=== PATIENT | male | born 1970 | race Hispanic/Latino ===

== ENCOUNTER 2018-03-29 15:59 | Emergency (ER) | payer OTHER, MEDICARE | END 2018-03-29 17:05 | disposition home or self-care (01) | LOC: EDH 15:59 | DX: S83.8X2A Sprain of other specified parts of left knee, initial encounter (principal); E78.5 Hyperlipidemia, unspecified; Z98.890 Other specified postprocedural states; Z72.0 Tobacco use; W18.39XA Other fall on same level, initial encounter; Y93.89 Activity, other specified; Y92.098 Other place in other non-institutional residence as the place of occurrence of the external cause; Y99.8 Other external cause status | CPT/HCPCS: 73562 ==

== ENCOUNTER 2018-08-08 10:52 | Emergency (ER) | payer OTHER, MEDICARE | END 2018-08-08 13:02 | disposition home or self-care (01) | LOC: EDH 10:52 | DX: R51 Headache (principal); E86.0 Dehydration; E78.5 Hyperlipidemia, unspecified; Z72.89 Other problems related to lifestyle; Z98.890 Other specified postprocedural states; Z72.0 Tobacco use | CPT/HCPCS: 99281 ==

== ENCOUNTER 2020-11-26 09:05 | Emergency (ER) | payer OTHER, MEDICARE ==
[2020-11-26 09:29] LABS: EOSINOPHILS % (AUTO) 3.6 % (0.0-8.0); HEMATOCRIT 42.5 % (42-54); LYMPHOCYTES % (AUTO) 22.5 % (21.0-51.0); MEAN CORPUSCULAR HEMOGLOBIN 29.3 pg (27.0-33.0); MEAN CORPUSCULAR HGB CONC 32.2 g/dL (32.0-36.0); MONOCYTES % (AUTO) 7.4 % (3.0-13.0); NEUTROPHILS % (AUTO) 65.1 % (40.0-77.0); PLATELET COUNT (AUTO) 243 K/uL (130-400); RED BLOOD CELL COUNT(AUTO) 4.67 MIL/uL (4.50-6.20); RED CELL DISTRIBUTION WIDTH 14.1 % (11.0-15.5); WHITE BLOOD COUNT (AUTO) 12.1 K/uL (4.8-10.8)
[2020-11-26 09:32] LABS: APPEARANCE,URINE Clear (CLEAR); BILIRUBIN,URINE Negative (NEGATIVE); COLOR,URINE Yellow (YELLOW); GLUCOSE, URINE (UA) Negative (NEGATIVE); KETONES,URINE Negative (NEGATIVE); LEUKOCYTE ESTERASE ,URINE Negative (NEGATIVE); NITRATE,URINE Negative (NEGATIVE); OCCULT BLOOD,URINE Small (NEGATIVE); PH,URINE 6.5 (5.0-8.0); PROTEIN,URINE Negative (NEGATIVE); UROBILINOGEN,URINE 0.2 mg/dL (0.2-1.0)
[2020-11-26 09:41] LABS: CREATININE 0.8 mg/dL (0.5-1.5)
[2020-11-26 09:42] LABS: BACTERIA,URINE None Seen /HPF (None Seen); RBC,URINE 0-1 /HPF (0-1); SQUAMOUS EPITHELIAL CELL,UR 0-2 /HPF (0-2); WBC,URINE 0-1 /HPF (0-1)
[2020-11-26 09:44] LABS: ALBUMIN 3.5 g/dL (3.5-5.0); BILIRUBIN,TOTAL 0.5 mg/dL (0.2-1.0); TOTAL PROTEIN, SERUM 6.8 g/dL (6.0-8.3)
[2020-11-26] MEDS ORDERED: KETOROLAC 30MG VIAL (30MG/ML) ONE (09:47)
[2020-11-26] MEDS ORDERED: LACTATED RINGERS 1000ML 1,000 ML IV ONE (09:48)
[2020-11-26] MEDS ORDERED: IOHEXOL-350 75 ML VIAL IV ONE (10:05)
== END 2020-11-26 13:22 | disposition home or self-care (01) ==
LOC: EDH 09:05
DX: R10.84 Generalized abdominal pain (principal); E86.0 Dehydration; E78.5 Hyperlipidemia, unspecified; Z72.0 Tobacco use
CPT/HCPCS: 36415; 74177; 80053; 81001; 83690; 85025; 96361; 96374; 99285; J1885; J7120; Q9967

== ENCOUNTER 2021-03-19 22:59 | Emergency (ER) | payer OTHER, MEDICARE ==
[~2021-03-19] VITALS: Ht 172.7 cm; Wt 113.4 kg
[2021-03-19 23:23] VITALS: BP 130/71
[2021-03-19] MEDS ORDERED: BENZONATATE 100 MG CAPSULE PO SCH (23:45)
[2021-03-19 23:59] LABS: BASOPHILS % (AUTO) 0.9 % (0.0-5.0); EOSINOPHILS % (AUTO) 1.2 % (0.0-8.0); HEMATOCRIT 40.2 % (42-54); LYMPHOCYTES % (AUTO) 16.7 % (21.0-51.0); MEAN CORPUSCULAR HEMOGLOBIN 29.6 pg (27.0-33.0); MEAN CORPUSCULAR HGB CONC 32.6 g/dL (32.0-36.0); MONOCYTES % (AUTO) 10.1 % (3.0-13.0); NEUTROPHILS % (AUTO) 70.5 % (40.0-77.0); PLATELET COUNT (AUTO) 197 K/uL (130-400); RED BLOOD CELL COUNT(AUTO) 4.42 MIL/uL (4.50-6.20); WHITE BLOOD COUNT (AUTO) 11.7 K/uL (4.8-10.8)
[2021-03-20 00:04] LABS: CREATININE 0.9 mg/dL (0.5-1.5)
[2021-03-20 00:18] LABS: ALBUMIN 3.6 g/dL (3.5-5.0); BILIRUBIN,TOTAL 0.4 mg/dL (0.2-1.0)
[2021-03-20] MEDS ORDERED: ACETAMINOPHEN 500 MG TABLET PO ONE (01:00)
[2021-03-20] MEDS: ACETAMINOPHEN 500 MG TABLET ONE ×2 (01:02→01:18)
[2021-03-20] MEDS ORDERED: SOLU-MEDROL 40MG VIAL IVP ONE (01:15)
[2021-03-20] MEDS ORDERED: CEFTRIAXONE 1G VIAL IVP ONE (01:15)
[2021-03-20] MEDS ORDERED: IPRATROPIUM/ALBUTEROL SULFATE 3 ML SOLUTION IH ONE (01:15)
[2021-03-20] MEDS ORDERED: APAP-CODEINE 300/30MG TAB PO ONE (01:15)
[2021-03-20] MEDS ORDERED: AMOX875T2 PO (03:03)
[2021-03-20] MEDS ORDERED: ALBU8.5H8 IH (03:03)
[2021-03-20] MEDS ORDERED: BENZ-17 PO (03:03)
[2021-03-20] MEDS ORDERED: PRED20TA3 PO (03:03)
== END 2021-03-20 03:21 | disposition home or self-care (01) ==
LOC: EDH 22:59
DX: J18.1 Lobar pneumonia, unspecified organism (principal); Z20.822 Contact with and (suspected) exposure to COVID-19; E78.00 Pure hypercholesterolemia, unspecified; F17.200 Nicotine dependence, unspecified, uncomplicated
CPT/HCPCS: 36415 ×2; 71045; 80053; 82550; 84484; 85025; 87040 ×2; 87635; 87804 ×2; 93005; 94640; 96374; 96375; 99285; C9803; J0696; J2920

== ENCOUNTER 2022-07-29 08:07 | Emergency (ER) | payer OTHER, MEDICARE ==
[~2022-07-29] VITALS: Ht 172.7 cm; Wt 97.1 kg
[~2022-07-29 08:07] MED LIST: ALBU8.5H8 IH; AMOX875T2 PO; BENZ-17 PO; PRED20TA3 PO
[2022-07-29 08:12] VITALS: BP 120/78
[2022-07-29] MEDS ORDERED: IBUP-2070 PO (08:44)
[2022-07-29] MEDS ORDERED: SULF1TAB42 PO (08:44)
[2022-07-29] MEDS ORDERED: SULFAMETHOX-TMP DS 800/160 TAB PO SCH (09:00)
[2022-07-29] MEDS ORDERED: CEFTRIAXONE 1G VIAL IM ONE (09:00)
[2022-08-04] MEDS ORDERED: PANT40TA PO (08:18)
[2022-08-04] MEDS ORDERED: DOXY100C5 PO (08:18)
== END 2022-07-29 09:12 | disposition home or self-care (01) ==
LOC: EDH 08:07
DX: K61.2 Anorectal abscess (principal); E78.00 Pure hypercholesterolemia, unspecified; Z98.890 Other specified postprocedural states; Z79.1 Long term (current) use of non-steroidal anti-inflammatories (NSAID)
CPT/HCPCS: 46050; 99284; 82948; 96372; J0696

== ENCOUNTER 2022-10-03 21:58 | Emergency (ER) | payer OTHER, MEDICARE ==
[~2022-10-03] VITALS: Ht 172.7 cm; Wt 99.8 kg
[~2022-10-03 21:58] MED LIST changes: -ALBU8.5H8 IH; -AMOX875T2 PO; -BENZ-17 PO; +DOXY100C5 PO; +PANT40TA PO; -PRED20TA3 PO
[2022-10-03 23:54] LABS: BASOPHILS % (AUTO) 0.6 % (0.0-5.0); EOSINOPHILS % (AUTO) 0.8 % (0.0-8.0); HEMATOCRIT 44.5 % (42-54); LYMPHOCYTES % (AUTO) 16.1 % (21.0-51.0); MEAN CORPUSCULAR HGB CONC 33.5 g/dL (32.0-36.0); MEAN CORPUSCULAR VOLUME 89.5 fL (79-99); MONOCYTES % (AUTO) 12.5 % (3.0-13.0); NEUTROPHILS % (AUTO) 68.6 % (40.0-77.0); PLATELET COUNT (AUTO) 199 K/uL (130-400); RED BLOOD CELL COUNT(AUTO) 4.97 MIL/uL (4.50-6.20); RED CELL DISTRIBUTION WIDTH 14.3 % (11.0-15.5); WHITE BLOOD COUNT (AUTO) 16.9 K/uL (4.8-10.8)
[2022-10-04] MEDS ORDERED: KETOROLAC 30MG VIAL (30MG/ML) IVP ONE
[2022-10-04] MEDS ORDERED: ACETAMINOPHEN 500 MG TABLET PO ONE
[2022-10-04 00:02] LABS: CREATININE 0.8 mg/dL (0.5-1.5); POTASSIUM 4.2 mmol/L (3.5-5.1)
[2022-10-04] MEDS ORDERED: SULFAMETHOX-TMP DS 800/160 TAB PO SCH (01:00)
[2022-10-04] MEDS ORDERED: CEFTRIAXONE 1G VIAL IVP ONE (01:00)
[2022-10-04 01:02] VITALS: BP 127/85
[2022-10-04] MEDS ORDERED: SULF1TAB42 PO (01:12)
[2022-10-04] MEDS ORDERED: CEPH500B PO (01:12)
== END 2022-10-04 01:21 | disposition home or self-care (01) ==
LOC: EDH 21:58
DX: L03.115 Cellulitis of right lower limb (principal); I89.1 Lymphangitis; Z79.2 Long term (current) use of antibiotics; Z79.899 Other long term (current) drug therapy
CPT/HCPCS: 99284; 96374; 80048; 85025; 36415; 73660; 96375; J1885; J0696

== ENCOUNTER 2022-11-26 22:35 | Observation (INO) | payer OTHER, MEDICARE ==
[~2022-11-26] VITALS: Ht 172.7 cm; Wt 102.7 kg
[~2022-11-26 22:35] MED LIST changes: +ASPI-1005 PO; +ATOR40TA69 PO; -DOXY100C5 PO; -PANT40TA PO; +SULF1TAB42 PO
[2022-11-27 01:01] LABS: BASOPHILS % (AUTO) 0.7 % (0.0-5.0); EOSINOPHILS % (AUTO) 1.1 % (0.0-8.0); HEMATOCRIT 46.7 % (42-54); LYMPHOCYTES % (AUTO) 26.2 % (21.0-51.0); MEAN CORPUSCULAR HEMOGLOBIN 30.1 pg (27.0-33.0); MEAN CORPUSCULAR HGB CONC 33.6 g/dL (32.0-36.0); MEAN CORPUSCULAR VOLUME 89.6 fL (79-99); MONOCYTES % (AUTO) 9.3 % (3.0-13.0); PLATELET COUNT (AUTO) 227 K/uL (130-400); RED BLOOD CELL COUNT(AUTO) 5.21 MIL/uL (4.50-6.20); RED CELL DISTRIBUTION WIDTH 13.6 % (11.0-15.5)
[2022-11-27 01:09] LABS: CARBON DIOXIDE 29 mmol/L (21-32); CHLORIDE 105 mmol/L (101-111); GLOMERULAR FILTR. RATE CALC 83 mL/min (>60); GLUCOSE,RANDOM 84 mg/dL (70-105); POTASSIUM 4.1 mmol/L (3.5-5.1); SODIUM SERUM 140 mmol/L (136-145); UREA NITROGEN, BLOOD 12 mg/dL (7-18)
[2022-11-27 01:16] LABS: ALANINE AMINOTRANSFERASE 23 U/L (12-78); ALBUMIN 3.7 g/dL (3.5-5.0); ASPARTATE AMINOTRANSFERASE 19 U/L (10-37); CRP QUANTITATIVE < 2.00 mg/L (0.00-9.0); TOTAL PROTEIN, SERUM 6.8 g/dL (6.0-8.3)
[2022-11-27] MEDS ORDERED: VANCOMYCIN KIT 1 GM/250 ML IV.KIT IV ONE (01:30)
[2022-11-27 05:30] VITALS: BP 113/68
[2022-11-27 08:00] VITALS: BP 121/74
[2022-11-27] MEDS: HONEY 1 APPL/ML TUBE TP SCH (08:00)
[2022-11-27] MEDS ORDERED: 0.9%NACL 100ML IVPB SCH (08:30)
[2022-11-27] MEDS ORDERED: VANCOMYCIN 500MG VIAL IVPB SCH (08:30)
[2022-11-27] MEDS ORDERED: VANCOMYCIN PROTOCOL PER PHARMACY IV SCH (08:30)
[2022-11-27] MEDS: CLINDAMYCIN IVPB 600MG/50ML 50 ML IV SCH ×2 (09:50→16:15)
[2022-11-27] MEDS: VANCOMYCIN 1.25 GM/250 ML BAG 250 ML IV SCH ×2 (09:51→20:21)
[2022-11-27] MEDS: ENOXAPARIN SODIUM 30 MG/0.3 ML SQ SCH (09:51)
[2022-11-27] MEDS: FAMOTIDINE 20MG TAB PO SCH ×2 (09:51→20:21)
[2022-11-27] MEDS: NICOTINE 14 MG/ 24 HR PATCH TD SCH (09:57)
[2022-11-27] MEDS: INSULIN HUMULIN R 100 UNIT/ML 3ML SQ SCH ×3 (11:30→20:29)
[2022-11-27 12:00] VITALS: BP 119/72
[2022-11-27 16:00] VITALS: BP 130/66
[2022-11-27] MEDS ORDERED: ACETAMINOPHEN 325 MG TAB PO PRN (18:30)
[2022-11-27] MEDS ORDERED: ACETAMINOPHEN WITH CODEINE 1 TAB TAB PO PRN (18:30)
[2022-11-27 20:00] VITALS: BP 117/75
[2022-11-28] VITALS: BP 109/66
[2022-11-28] MEDS: CLINDAMYCIN IVPB 600MG/50ML 50 ML IV SCH ×2 (00:44→13:58)
[2022-11-28 04:00] VITALS: BP 115/76
[2022-11-28] MEDS: INSULIN HUMULIN R 100 UNIT/ML 3ML SQ SCH ×2 (05:41→11:30)
[2022-11-28 05:47] LABS: MEAN CORPUSCULAR HEMOGLOBIN 29.8 pg (27.0-33.0); MEAN CORPUSCULAR HGB CONC 33.3 g/dL (32.0-36.0); MEAN CORPUSCULAR VOLUME 89.3 fL (79-99); RED BLOOD CELL COUNT(AUTO) 5.04 MIL/uL (4.50-6.20); RED CELL DISTRIBUTION WIDTH 13.7 % (11.0-15.5); WHITE BLOOD COUNT (AUTO) 10.9 K/uL (4.8-10.8)
[2022-11-28 06:02] LABS: CREATININE 0.8 mg/dL (0.5-1.5); POTASSIUM 3.9 mmol/L (3.5-5.1)
[2022-11-28] MEDS: FAMOTIDINE 20MG TAB PO SCH (07:47)
[2022-11-28] MEDS: ENOXAPARIN SODIUM 30 MG/0.3 ML SQ SCH (07:47)
[2022-11-28] MEDS: VANCOMYCIN 1.25 GM/250 ML BAG 250 ML IV SCH (07:48)
[2022-11-28 08:00] VITALS: BP 126/86
[2022-11-28] MEDS: HONEY 1 APPL/ML TUBE TP SCH (09:00)
[2022-11-28 11:43] VITALS: BP 118/75
[2022-11-28] MEDS: NICOTINE 14 MG/ 24 HR PATCH TD SCH (13:58)
[2022-11-28 15:39] VITALS: BP 124/82
[2022-11-28] MEDS ORDERED: SULF1TAB42 PO (16:13)
== END 2022-11-28 18:00 | disposition home or self-care (01) ==
LOC: EDH 22:35 → EDHIP 11-27 03:10 → 3AH 11-27 05:22
PROVIDERS: ADMIT Internal Medicine Critical Care Medicine; ATTEND Internal Medicine Critical Care Medicine
DX: L03.116 Cellulitis of left lower limb (principal); I73.9 Peripheral vascular disease, unspecified; E11.621 Type 2 diabetes mellitus with foot ulcer; L97.529 Non-pressure chronic ulcer of other part of left foot with unspecified severity; E11.51 Type 2 diabetes mellitus with diabetic peripheral angiopathy without gangrene; F17.200 Nicotine dependence, unspecified, uncomplicated; E66.01 Morbid (severe) obesity due to excess calories; E78.5 Hyperlipidemia, unspecified; I10 Essential (primary) hypertension; Z68.34 Body mass index [BMI] 34.0-34.9, adult; Z86.14 Personal history of Methicillin resistant Staphylococcus aureus infection; Z79.899 Other long term (current) drug therapy
CPT/HCPCS: 96372 ×2; 96365; 96366 ×2; 96368; 99284; 80053; 85025; 87040 ×2; 87070; 87076; 87077; 87186; 82948 ×8; 83605; 86140; 36415 ×2; 73630; 93970; 84145; 83735; 80048; 85027; G0378 ×39; J1650 ×3; J3370; J3490 ×3

== ENCOUNTER 2023-09-10 08:14 | Day surgery (SDC) | payer OTHER ==
[~2023-09-10] VITALS: Ht 172.7 cm; Wt 102.1 kg
[2023-09-10] VITALS (11 sets, daily range): BP systolic 92–123; BP diastolic 53–82; PULSE 65–83; RESP 14–18
[~2023-09-10 08:14] MED LIST changes: +0.9%NACL 1000ML 1,000 ML IV ONE; -ASPI-1005 PO; -ATOR40TA69 PO; -SULF1TAB42 PO; +TRAM100T40 PO; +[UNRECOGNIZED DRUG - CODE] PO
[2023-09-10] MEDS ORDERED: PROPOFOL 10 MG/ML 20ML VIAL IV ONE ×2 (11:05→11:09)
== END 2023-09-10 12:30 | disposition home or self-care (01) ==
LOC: ENDO 08:14 → DAH 08:14 → ENDO 12:30
PROVIDERS: ATTEND Internal Medicine Gastroenterology
DX: K92.1 Melena (principal); K59.01 Slow transit constipation; K57.30 Diverticulosis of large intestine without perforation or abscess without bleeding; K64.1 Second degree hemorrhoids; K64.4 Residual hemorrhoidal skin tags; E66.01 Morbid (severe) obesity due to excess calories; F17.200 Nicotine dependence, unspecified, uncomplicated; M12.9 Arthropathy, unspecified; E78.5 Hyperlipidemia, unspecified; Z86.010 Personal history of colon polyps; Z79.899 Other long term (current) drug therapy; Z98.890 Other specified postprocedural states; Z72.89 Other problems related to lifestyle; Z68.36 Body mass index [BMI] 36.0-36.9, adult
CPT/HCPCS: 45378; J7030 ×3; J2704 ×2; A4620 ×2; A4215 ×4; A4223 ×2; A7002 ×2; A4222 ×2; A4221 ×2; A4663 ×2; A4216 ×2; A4606 ×2; J3490

== ENCOUNTER 2024-06-03 10:01 | Emergency (ER) | payer OTHER ==
[~2024-06-03] VITALS: Ht 180.3 cm; Wt 90.7 kg
[~2024-06-03 10:01] MED LIST changes: -0.9%NACL 1000ML 1,000 ML IV ONE
[2024-06-03] MEDS: ketOROlac 15MG/ML VIAL (15MG/ML) IM STA (11:41)
[2024-06-03 13:07] VITALS: BP 76/80; PULSE 78; RESP 16; TEMP 97.8; O2SAT 99
== END 2024-06-03 13:15 | disposition home or self-care (01) ==
LOC: EDH 10:01
DX: S80.01XA Contusion of right knee, initial encounter (principal); I10 Essential (primary) hypertension; Z79.899 Other long term (current) drug therapy; W17.2XXA Fall into hole, initial encounter; Y93.89 Activity, other specified; Y92.89 Other specified places as the place of occurrence of the external cause; Y99.8 Other external cause status
CPT/HCPCS: 99283; 73562; 96372; J1885

== ENCOUNTER 2024-12-09 00:36 | Emergency (ER) | payer OTHER ==
[~2024-12-09] VITALS: Ht 172.7 cm; Wt 108.9 kg
--- NOTE | 2024-12-09 01:04 | ERN ---
ED Note History of Present Illness Stated Complaint: HEADACHE Chief Complaint: Headache Time Seen by : 00:44 Dictation: This is a 54-year-old male who presented to the emergency room complaining of headaches for the past 5 days. He also reported severe sinus congestion he has been taking Tylenol and also nasal spray. Since the headaches were relentless he came in for evaluation. He stated that he has had sinus congestion for a long time and has been using the nasal decongestant 4 months. 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 He has been taking tramadol from [place] for the chronic back pain(he had surgery many years ago). For the past 6 days he has been off of all the medications and the headache is worse . He took Tylenol and some NyQuil hoping to sleep the headache away however, it has been excruciating. The pain is mostly on the vertex and the backside. There is some light sensitivity but no aura. No throbbing. No vomitings No blurred vision diplopia motor weakness or seizure activity. No slurred speech facial droop. Temperature 96.4 pulse 73 respirations 19 blood pressure 141/87 with a pulse oximetry of 97% on room air 0 He denied any fevers but he has been taking Tylenol so it is unclear. No epistaxis. No ataxia no earaches. Temperature 96.4 pulse 73 respirations 19 blood pressure 141/87 pulse oximetry 97% on room Allergies: Coded Allergies: No Known Drug Allergies (Unverified Allergy, Unknown, 03/19/21) Home Meds Active Scripts Prochlorperazine Maleate (Compazine) 5 Mg Tab, 1 TAB PO t1d for 5 Days, #15 TAB 0 Refills Prov:TONIO WEBER MD 12/09/24 Ketorolac Tromethamine (Toradol) 10 Mg Tab, 10 MG PO QID for pain for 5 Days, # 20 TAB 0 Refills Prov:TONIO WEBER MD 12/09/24 Reported Medications Psyllium Husk (with Sugar) (Metamucil Free Powder) 3 Gram/7 Gram Powder, 822 GM PO AD, APPL 09/09/23 Tramadol HCl (Tramadol HCl) 100 Mg Tablet, 100 MG PO AD PRN for PAIN, TAB 09/09/23 Past Medical History Past Medical History: No Pertinent History Surgical History: None Surgical History Other: LEFT FOOT SX back surgery for herniated discs Family History: Negative Social History: Negative, Lives with family, Other RN Note Reviewed/Agreed w/PFSH: Yes Review of System Dictation Constitutional: Negative for fever,chills, and weight loss Eyes: Negative for injury, pain,redness, and discharge ENT: Negative for injury,pain or swelling positive for sinus congestion and headaches Cardiovascular: Negative for chest pain, palpitations, and edema Respiratory: Negative for shortness of breath, cough, and wheezing, Abdomen/GI: Negative for abdominal pain, nausea, vomiting, diarrhea, and constipation Back: Negative for injury and pain : Negative for injury, bleeding and discharge MS/Extremity: Negative for injury and deformity Skin: Negative for rash, and discoloration Neuro: Negative for headache, weakness, numbness, tingling, and seizure Psych: Negative for suicide ideation, homicidal ideation, and hallucinations Initial Vital Sign VS Vital Signs Date Time Temp Pulse Resp B/P (MAP) Pulse Ox O2 Delivery O2 Flow Rate FiO2 12/09/24 00:54 96.4 73 19 141/87 97 Room Air Physical Exam Dictation General: awake, alert, NAD Head/Face: Normocephalic, atraumatic Eyes: PERRL, EOMI, vision at baseline ENT: oral cavity clear, TMs clear, no signs of infection Neck: Trachea midline, supple, no nuchal rigidity Cardiovascular: RRR, normal S1/S2, No MRGs, no JVD Respiratory: CTAB, no respiratory distress, No rales or wheezes Abdomen: Soft, non-tender, non-distended, normal bowel sounds, no guarding or rebound. Skin: Warm, dry, normal turgor, no rash MS/Extremity: Pulses equal, no cyanosis, neurovascular intact, FROM Neuro: COAx4, GCS 15, strength 5/5, CN 2-12 intact, normal cerebellar exam, normal gait, Psych: Normal behavior, mood, and affect normal Extremities-trace edema without any palpable cords, Homans sign is negative ED Course ED Course Orders Procedure Category Date Status Time Hydromorphone 1 Mg PHA 12/09/24 Complete Inj (Dilaudid 1mg Inj 02:00 Prochlorperazine PHA 12/09/24 Complete 10mg/2ml Inj 02:00 Diphenhydramine Hcl PHA 12/09/24 Complete (Benadryl Inj) 02:00 Methylprednisolone PHA 12/09/24 Complete Succ 40mg (Solu-Medro 02:00 Current Medications Medications (Trade) Dose Ordered Sig/Ubaldo Route PRN Reason Start Time Stop Time Status Last Admin Dose Admin Diphenhydramine HCl (BENAdryl INJ) 50 mg ONCE ONCE IV 12/09/24 02:00 12/09/24 02:01 DC 12/09/24 02:18 Hydromorphone HCl (DiLAUDid 1MG INJ) 1 mg ONCE ONCE IVP 12/09/24 02:00 12/09/24 02:01 DC 12/09/24 02:19 Methylprednisolone Sodium Succinate (Solu-medROL 40MG) 60 mg ONCE ONCE IVP 12/09/24 02:00 12/09/24 02:01 DC 12/09/24 02:19 Prochlorperazine Edisylate (Compazine 10mg/ 2ml Inj) 5 mg ONCE ONCE IV 12/09/24 02:00 12/09/24 02:01 DC 12/09/24 02:19 Vital Signs Date Time Temp Pulse Resp B/P (MAP) Pulse Ox O2 Delivery O2 Flow Rate FiO2 12/09/24 00:54 96.4 73 19 141/87 97 Room Air We will administer medications according to the patient's complaint. Once the results are available, will review and personally interpreted the labs to rule out any acute life-threatening emergency the trach require immediate intervention and treatment. I will then re-evaluate the patient after treatment and diagnostic exams have return to determine whether the patient requires any further testing, can safely be discharged home or need further admission to hospital for additional treatment and evaluation. 1:15 a.m. I had a long discussion with the patient and spouse about NSAID Tylenol induced headaches. We also talked about alternative options including Botox to relax the forehead muscles, and relaxing the neck muscles and the TMJ muscles. Awaiting IV placement for medications. 2:21 a.m. patient just received medications for his headache. Feeling that the headache is improving 3:12 a.m. headache completely resolved and he feels significantly better. We will discharge him follow up with his primary care physician Medical Decision Making MDM MDM: Differential diagnosis: Rationale: Tests considered and ordered secondary to shared decision making include: Previous outside records reviewed: Old ER visits. Risk of complication and/or morbidity or mortality of patient management: None Medications-Per medication reconciliation Need for hospitalization: Patient does not meet criteria for hospitalization. Need for emergency major/minor surgery: No There are no social concerns with this patient. Prescription drug management Prescriptions will include symptomatic care Patient's prior external medical records from other ER visits were reviewed by me as indicated. Prior testing and results from previous visits were reviewed. Prior tests were taken into account with medical decision making and resource utilization, independent historian/historians were used to obtain complete medical history. I independently interpreted the test that were performed, results were reviewed by me and considered findings on radiology if ordered. Medical management and examination interpretation discussions were had by me with other qualified healthcare professionals as indicated for the patient's care. Problem List Problem List: (1) Chronic mixed headache syndrome (2) Excessive use of nonsteroidal anti-inflammatory drugs (NSAIDs) DX & DISP Disposition: Discharge Departure Impression: Primary Impression: Chronic mixed headache syndrome Additional Impression: Excessive use of nonsteroidal anti-inflammatory drugs (NSAIDs) Condition: Stable Scripts Prochlorperazine Maleate (Compazine) 5 Mg Tab 1 TAB PO t1d for 5 Days, #15 TAB 0 Refills Prov: TONIO WEBER MD 12/09/24 Ketorolac Tromethamine (Toradol) 10 Mg Tab 10 MG PO QID for pain for 5 Days, #20 TAB 0 Refills Prov: TONIO WEBER MD 12/09/24 Additional Instructions: Patient and the caregiver have been informed of all the diagnostic tests and the imaging conducted during the today's visit to the emergency room and has verbalized understanding of the results I have personally reviewed and interpreted all diagnostic exams performed here in the ER today as well as the vital signs documented by the nursing staff. The patient is now being discharged to home and should follow up with the primary care physician or the specialist as directed by the ER staff. Follow-up with primary care provider in 1 to 2 days. Take medications as directed here in the emergency room. Okay to continue home medications unless otherwise discussed during your visit in the emergency room today. Return to your nearest emergency room if symptoms worsen or if there is no improvement. Call 911 if you need immediate assistance. Take Tylenol or Motrin [id number] as needed and if no contraindications are present. Increase oral hydration. A wound culture or urine culture was ordered here in the emergency room department please follow-up with primary care provider and advise them to get repeat ports from our facility. If you had any El wrap/splints that were applied here, please do not remove them until you see your primary care or specialty. Referrals: BRE WEST MD (PCP) TONIO WEBER MD Dec 09, 2024 01:04
[2024-12-09] MEDS: DiphenhydrAMINE HCL 50 MG/ML VIAL IV ONE (02:18)
[2024-12-09] MEDS: PROCHLORPERAZINE 10MG/2ML INJ IV ONE (02:19)
[2024-12-09] MEDS: hydroMORPHone 1 MG INJ IVP ONE (02:19)
[2024-12-09] MEDS: Solu-medROL 40MG VIAL IVP ONE (02:19)
[2024-12-09] MEDS ORDERED: PROC5TAB54 PO (02:51)
[2024-12-09] MEDS ORDERED: KETO10 PO (02:51)
[2024-12-09 03:16] VITALS: BP 132/78; PULSE 72; RESP 16; TEMP 97.8; O2SAT 98
== END 2024-12-09 03:28 | disposition home or self-care (01) ==
LOC: EDH 00:36
DX: G44.89 Other headache syndrome (principal); Z79.1 Long term (current) use of non-steroidal anti-inflammatories (NSAID); Z79.899 Other long term (current) drug therapy
CPT/HCPCS: 99284; 96374; 96375; J2919; J1171; J1200; J0780